=== PATIENT | female | born 1975 | race Caucasian/White ===

== ENCOUNTER 2018-12-06 09:37 | Outpatient (CLI) | payer MEDICAID | END 2018-12-06 09:38 | disposition home or self-care (01) | LOC: LAB 09:37 | PROVIDERS: ATTEND Obstetrics & Gynecology Reproductive Endocrinology | DX: Z32.01 Encounter for pregnancy test, result positive (principal) | CPT/HCPCS: 36415; 84443; 84702 ==

== ENCOUNTER 2019-07-18 11:41 | Outpatient (CLI) | payer MEDICAID ==
--- NOTE | 2019-07-18 14:59 | Ultrasound Report ---
Reason: POSITION CHECK, SUPER OF ELDERLY PRIMIGRAVID Procedure Date: 07/18/2019 Accession Number: [id number] / [id number] Procedure: US - OB Limited CPT Code: FULL RESULT: EXAM: LIMITED OBSTETRICAL ULTRASOUND EXAM DATE: 07/18/2019 12:51 PM. CLINICAL HISTORY: Position check, supervision of elderly primigravida. COMPARISON: None. TECHNIQUE: Real-time sonographic evaluation of the fetus performed by the senior power scheduler. Multiple underwriting sales representative static images were saved for review. DATING: Established EGA 41 weeks 1 day with WILFRIDO 07/10/2019. GENERAL EVALUATION Nunez . Cardiac activity: 158 bpm. movement: Visualized. Presentation: Cephalic. Placenta: Posterior position. Amniotic fluid: Normal. LUCINA 15.4 cm. MVP 4.7 cm. MATERNAL STRUCTURES Cervix not seen. IMPRESSION: 1. Nunez live intrauterine with gestational age 41 weeks 1 day based on established WILFRIDO. 2. Adequate amniotic fluid. RADIA
== END 2019-07-18 11:42 | disposition home or self-care (01) ==
LOC: DI 11:41
PROVIDERS: ATTEND Midwife
DX: O09.513 Supervision of elderly primigravida, third trimester (principal); Z3A.41 41 weeks gestation of pregnancy
CPT/HCPCS: 76815

== ENCOUNTER 2020-06-22 11:40 | Outpatient (CLI) | payer MEDICAID | END 2020-06-22 11:41 | disposition home or self-care (01) | LOC: COV 11:40 | PROVIDERS: ATTEND Family Medicine | DX: R50.9 Fever, unspecified (principal); M79.10 Myalgia, unspecified site; R53.83 Other fatigue; R07.0 Pain in throat; R19.7 Diarrhea, unspecified; R11.0 Nausea; R43.9 Unspecified disturbances of smell and taste; Z20.828 Contact with and (suspected) exposure to other viral communicable diseases ==

== ENCOUNTER 2020-11-29 10:49 | Outpatient (CLI) | payer MEDICAID | END 2020-11-29 10:50 | disposition home or self-care (01) | LOC: COV 10:49 | PROVIDERS: ATTEND Family Medicine | DX: Z20.822 Contact with and (suspected) exposure to COVID-19 (principal) ==

== ENCOUNTER 2020-12-13 07:00 | Outpatient (CLI) | payer MEDICAID ==
--- NOTE | 2020-12-13 15:46 | XRAY Report ---
PROCEDURE: Knee 4 View LT INDICATIONS: L KNEE JOINT PX TECHNIQUE: 4 views of the left knee(s) were acquired. COMPARISON: None. FINDINGS: Bones: No fractures or dislocations. No suspicious bony lesions. Questionable bilateral minimal me dial and left patellofemoral compartment narrowing. No erosions or periarticular osteophytes. Soft tissues: Mild joint effusion. No suspicious soft tissue calcifications. IMPRESSION: Questionable early degenerative narrowing within the medial compartments bilaterally as above. Reviewed by: Laurel Hurtado MD on 12/13/2020 3:45 PM PST Approved by: Laurel Hurtado MD on 12/13/2020 3:45 PM PST Station ID: [id number]
== END 2020-12-13 23:59 | disposition home or self-care (01) ==
LOC: DI.N 07:00
PROVIDERS: ATTEND Physician Assistant
DX: M25.562 Pain in left knee (principal)